=== PATIENT | male | born 1960 | race American Indian/Alaskan Native ===

== ENCOUNTER 2018-10-26 20:04 | Inpatient (IN) | payer SELFPAY ==
[2018-10-26] MEDS ORDERED: ZOFRAN IV ONE (20:06)
[2018-10-26] MEDS ORDERED: NITRO-BID 2% TP ONE (20:06)
[2018-10-26] MEDS ORDERED: DILAUDID IV ONE ×2 (20:06→20:14)
[2018-10-26] MEDS ORDERED: PLAVIX PO ONE (20:07)
--- NOTE | 2018-10-26 20:11 | Emergency Department Report ---
HPI - General Time Seen by Provider: 10/26/18 20:05 - [facility] HPI: Room 20 The patient is a 58-year-old male presents with a chief complaint of chest pain. Patient states proximal one hour prior to arrival developed severe substernal chest pain shortness of breath nausea/vomiting and diaphoresis. Prehospital EKG was transmitted by EMS prior to arrival and this EKG was transmitted to Dr. Peter at 19:46 as a code STEMI was called. EKG in ED sent at 20:02 Location: Chest Duration: [See above] Quality: [See above] Severity: [See above] Modifying factors: [see above] Context: [see above] Mode of transportation: [not driving] ED Past Medical Hx - Past Medical History Hx Hypertension: Yes Hx Psychiatric Treatment: Yes (anxiety) Additional medical history: History of alcoholism - Surgical History Past Surgical History?: No - Family History Family history: no significant - Social History Smoking Status: Current Every Day Smoker ED Review of Systems ROS: Stated complaint: STEMI Other details as noted in HPI Constitutional: diaphoresis Eyes: denies: eye pain ENT: denies: throat pain Respiratory: shortness of breath Cardiovascular: chest pain Endocrine: no symptoms reported Gastrointestinal: nausea, vomiting Genitourinary: denies: dysuria Musculoskeletal: denies: back pain Neurological: denies: headache Physical Exam - Physical Exam Physical Exam: GENERAL: The patient is well-developed well-nourished male lying on stretcher appearing to be in acute discomfort. Patient writhing on stretcher HEENT: Normocephalic. Atraumatic. Extraocular motions are intact. Patient has moist mucous membranes. NECK: Supple. Trachea midline CHEST/LUNGS: Clear to auscultation. There is no respiratory distress noted. HEART/CARDIOVASCULAR: Regular. There is no tachycardia. There is no gallop rub or murmur. ABDOMEN: Abdomen is soft, nontender. Patient has normal bowel sounds. There is no abdominal distention. SKIN: There is no rash. There is no edema. There is no diaphoresis. NEURO: The patient is awake, alert, and oriented. The patient is cooperative. The patient has normal speech MUSCULOSKELETAL: There is no evidence of acute injury. ED Course - Consultations Consultation #1: 10/26/18 19:[address] Peter 10/26/18 20:02 Repeat EKG and case discussed with Dr Mandadi ED Medical Decision Making - EKG Data -: EKG Interpreted by Me EKG shows normal: sinus rhythm Rate: normal - EKG Data When compared to previous EKG there are: previous EKG unavailable Interpretation: acute GA (STEMI) - Differential Diagnosis STEMI Critical care attestation.: If time is entered above; I have spent that time in minutes in the direct care of this critically ill patient, excluding procedure time. ED Disposition Clinical Impression: STEMI (ST elevation myocardial infarction), Acute chest pain Disposition: 09 OP ADMIT IP TO THIS HOSP Is pt being admited?: Yes Does the pt Need Aspirin: Yes Condition: Fair Instructions: Chest Pain (ED) Time of Disposition: 20:12 (awaiting warehouse laborer)
[2018-10-26 20:17] LABS: Basophils # (Auto) 0.1 K/mm3 (0.0-0.1); Basophils % (Auto) 0.5 % (0.0-1.8); Eosinophils # (Auto) 0.2 K/mm3 (0.0-0.4); Eosinophils % (Auto) 1.1 % (0.0-4.3); Hematocrit 48.3 % (35.5-45.6); Hemoglobin 15.7 gm/dl (11.8-15.2); Lymphocytes # (Auto) 3.5 K/mm3 (1.2-5.4); Lymphocytes % (Auto) 21.4 % (13.4-35.0); Mean Corpuscular HGB Conc 33 % (32-34); Mean Corpuscular Volume 83 fl (84-94); Monocytes # (Auto) 1.2 K/mm3 (0.0-0.8); Monocytes % (Auto) 7.3 % (0.0-7.3); Platelet Count 293 K/mm3 (140-440); Red Blood Count 5.84 M/mm3 (3.65-5.03); Red Cell Distribution Width 16.7 % (13.2-15.2)
[2018-10-26 20:26] LABS: INR 1.1 (0.87-1.13)
[2018-10-26 20:27] LABS: Partial Thromboplastin Time 22.5 Sec. (24.2-36.6)
--- NOTE | 2018-10-26 20:27 | History and Physical Report ---
History of Present Illness Chief complaint: My chest hurts History of present illness: 58 YO Male with HTN, Anxiety, Nicotine Dependence, ETOH Dependence presents to ED for evaluation. Pt states that he has experienced pain in his chest over the past 1 hour. Pt states that pain is 10/10, constant, crushing in nature, worsened with exertion, relieved with rest, associated with shortness of breath and diaphoresis. Pt acknowledges nausea. EMS notified, and upon arrival EKG findinngs consistent with STEMI. A code STEMI was called and the patient was transported to [facility]. Cardiology notified. Pt seen and evaluated in ED and taken urgently to clinical laboratory aides teacher for intervention. Pt admitted to ICU. Pt denies fever, chills, syncope, hemoptysis, BRBPR, productiive cough, skin rash, unilateral leg swelling, calf pain, individual/family history of DVT/PE, or recent ill contacts. No prior admission for review. All listed medication reconciled at time of admission. Past History Past Medical History: hypertension, other (Alcohol Dependence) Past Surgical History: No surgical history, Other (reviewed) Social history: single, smoking Family history: diabetes, hypertension Medications and Allergies Allergies Allergy/AdvReac Type Severity Reaction Status Date / Time No Known Allergies Allergy Verified 10/26/18 20:17 Active Meds: Active Medications Lidocaine (Xylocaine 2%) Confirm Administered Dose 20 ml INFILTRATI .STK-MED ONE Stop: 10/26/18 20:30 Review of Systems Constitutional: no weight loss, no weight gain, no fever, no chills Ears, nose, mouth and throat: no ear pain, no ear discharge, no tinnitis, no decreased hearing, no nose pain, no nasal discharge, no sinus pressure Cardiovascular: chest pain, shortness of breath Respiratory: no cough, no cough with sputum, no excessive sputum, no hemoptysis Gastrointestinal: no nausea, no constipation, no change in bowel habits Genitourinary Male: no dysuria, no flank pain, no discharge, no urinary frequenc y, no urinary hesitancy, no nocturia Rectal: no pain, no incontinence, no bleeding Musculoskeletal: no neck stiffness, no neck pain, no shooting arm pain, no arm numbness/tingling, no low back pain, no shooting leg pain Integumentary: no rash, no pruritis, no redness, no sores, no jaundice Neurological: no transient paralysis, no paralysis, no weakness, no parathesias, no numbness, no tingling, no seizures, no syncope Psychiatric: no anxiety, no memory loss, no change in sleep habits, no sleep disturbances, no insomnia, no hypersomnia, no change in appetite, no change in libido Endocrine: no cold intolerance, no heat intolerance, no excessive thirst, no polydipsia, no nocturia, no excessive sweating, no flushing Hematologic/Lymphatic: no easy bruising, no lymphadenopathy, no lymphedema Allergic/Immunologic: no urticaria, no anaphylaxis, no angioedema Exam - Constitutional Vitals: Temp Pulse Resp BP Pulse Ox 97.9 F 75 17 113/63 92 10/26/18 20:21 10/26/18 20:21 10/26/18 20:21 10/26/18 20:21 10/26/18 20:21 General appearance: Present: severe distress - EENT Eyes: Present: PERRL ENT: hearing intact, clear oral mucosa - Neck Neck: Present: supple, normal ROM - Respiratory Respiratory effort: normal Respiratory: bilateral: CTA - Cardiovascular Heart Sounds: Present: S1 & S2. Absent: rub, click - Extremities Extremities: pulses symmetrical, No edema Peripheral Pulses: within normal limits - Abdominal General gastrointestinal: Present: soft, non-tender, non-distended, normal bowel sounds Male genitourinary: Present: normal - Integumentary Integumentary: Present: clear, warm, dry - Musculoskeletal Musculoskeletal: gait normal, strength equal bilaterally - Psychiatric Psychiatric: appropriate mood/affect, intact judgment & insight - Neurologic Neurologic: CNII-XII intact, moves all extremities Results - Labs CBC & Chem 7: 10/27/18 05:00 10/27/18 05:00 Labs: Abnormal lab results 10/26/18 Range/Units 20:03 WBC 16.2 H (4.5-11.0) K/mm3 RBC 5.84 H (3.65-5.03) M/mm3 Hgb 15.7 H (11.8-15.2) gm/dl Hct 48.3 H (35.5-45.6) % MCV 83 L (84-94) fl MCH 27 L (28-32) pg RDW 16.7 H (13.2-15.2) % [place] # 1.2 H (0.0-0.8) K/mm3 Seg Neutrophils # 11.3 H (1.8-7.7) K/mm3 Assessment and Plan - Patient Problems (1) STEMI (ST elevation myocardial infarction) Current Visit: Yes Status: Acute Qualifiers: Involved coronary artery: LAD coronary artery Qualified Code(s): I21.02 - ST elevation (STEMI) myocardial infarction involving left anterior descending coronary artery Plan to address problem: Admit to ICU: Cardiology consulted in ED, Pt taken urgently to laboratory development technician for intervention, supportive care. (2) Diastolic CHF Current Visit: Yes Status: Acute Qualifiers: Heart failure chronicity: acute Qualified Code(s): I50.31 - Acute diastolic (congestive) heart failure Plan to address problem: Admit to ICU, strict I/O, daily weight, monitor uop q shift, afterload reduction, supportive care chest x ray, supplemental oxygen, pulse oximetry. (3) EtOH dependence Current Visit: Yes Status: Chronic Qualifiers: Substance use status: with intoxication Complication of substance-induced condition: uncomplicated Qualified Code(s): F10.220 - Alcohol dependence with intoxication, uncomplicated Plan to address problem: CIWA protocol, banana bag, supportive care, thiamine, folic acid, multivitamin (4) SIRS (systemic inflammatory response syndrome) Current Visit: Yes Status: Acute Plan to address problem: CBC, CMP, Empiric antibiotic therapy, urinalysis, chest x ray (5) DVT prophylaxis Current Visit: Yes Status: Acute Plan to address problem: SCD to BLE while in bed,
[2018-10-26] MEDS ORDERED: MORPHINE IV PRN (20:28)
[2018-10-26] MEDS ORDERED: SODIUM CHLORIDE FLUSH SYRINGE 10 ML IV PRN (20:28)
[2018-10-26] MEDS ORDERED: HEPARIN/NS 5000 UNIT/500ML(CATH LAB) 1,000 ML IR ONE (20:28)
[2018-10-26] MEDS ORDERED: XYLOCAINE 2% INFILTRATI ONE (20:29)
[2018-10-26] MEDS ORDERED: VERSED ONE (20:29)
[2018-10-26] MEDS ORDERED: SUBLIMAZE ONE (20:29)
[2018-10-26] MEDS ORDERED: CALAN ONE (20:29)
[2018-10-26] MEDS ORDERED: NACL 0.9% 500 ML 500 ML ONE (20:30)
[2018-10-26] MEDS ORDERED: VITAMIN B-1 100 MG, FOLVITE 1 MG, INFUVITE 10 ML in NACL 0.9% 1000 ML 1,000 ML IV ONE (20:32)
[2018-10-26] MEDS ORDERED: ATIVAN IV PRN (20:32)
[2018-10-26 20:40] LABS: Creatine Kinase MB 2.8 ng/mL (0.0-4.0)
[2018-10-26] MEDS ORDERED: NEO SYNEPHRINE/NS Syringe(OR USE) IV ONE (20:40)
[2018-10-26] MEDS ORDERED: ADRENALIN ONE (20:40)
[2018-10-26] MEDS ORDERED: ATROPINE 0.1% (CARDIAC) ONE (20:40)
[2018-10-26] MEDS ORDERED: XYLOCAINE CARDIAC IV ONE (20:40)
[2018-10-26 20:41] LABS: BUN/Creatinine Ratio 16; Blood Urea Nitrogen 21 mg/dL (9-20); Calcium 9.1 mg/dL (8.4-10.2); Hemolysis Index 57
[2018-10-26] MEDS: HEPARIN 10,000 UNITS/10 ML ONE ×2 (20:41→20:49)
[2018-10-26] MEDS ORDERED: HEPARIN 10,000 UNITS/10 ML ONE (20:58)
[2018-10-26] MEDS ORDERED: ZOFRAN ONE (20:58)
[2018-10-26] MEDS: AGGRASTAT DRIP (12.5 MG/250 ML) 12,500 MCG/250 ML BAG IV ONE ×2 (21:00→21:08)
[2018-10-26] MEDS ORDERED: ALUM-MAG HYDROX-SIMETH 200-200-20MG/5ML ONE (21:05)
[2018-10-26] MEDS ORDERED: PLAVIX ONE (21:05)
[2018-10-26] MEDS ORDERED: BABY ASPIRIN ONE (21:05)
[2018-10-26] MEDS ORDERED: HEPARIN/NS 5000 UNIT/500ML(CATH LAB) 500 ML IR ONE (21:09)
[2018-10-26] MEDS ORDERED: NITROGLYCERIN SYRINGE 3 ML ONE (21:19)
[2018-10-26] MEDS ORDERED: ULTRAM PO PRN (21:35)
--- NOTE | 2018-10-26 21:43 | Consultation ---
History of Present Illness Consult date: 10/26/18 Requesting physician: GERALDINE PERSAUD Consult reason: chest pain History of present illness: 58-year-old male history of anxiety and depression chronic pain heavy smoker EtOH abuse was recently at the [employer] was primary care was advised at that time stopped smoking today he was having midsternal chest pain sharp in nature also with palpations with nausea and vomiting diaphoresis nonradiating acute midsternal chest pressure. EMS was called by the mother and he showed an acute anterior lateral wall myocardial infarction patient was brought emergently to the label fuser tender which revealed left main patent LAD proximal pain in the mid 100% diagonal one patent ramus patent circumflex patent OM1 patent RCA patent with mild LV dysfunction EF approximately 45% anterior wall hypokinesis patient had PCI of the mid LAD with a drug-eluting science 2 5 x 23 mm postdilated with 3.0 by 12 times to inflation residual distal diagonal to small vessel clot. Patient's chest pain has improved we'll continue with Aggr astat and dual antiplatelet. Discussed with patient and patient's mother. Patient has not been on medications for anxiety and depression for 3 months Past History Past Medical History: hypertension, other (Alcohol Dependence) Past Surgical History: Other (bilateral shoulder replacement and thigh injury) Social history: single, smoking, alcohol abuse Family history: diabetes, hypertension Medications and Allergies Allergies Allergy/AdvReac Type Severity Reaction Status Date / Time No Known Allergies Allergy Verified 10/26/18 20:17 Active Meds: Active Medications Ceftriaxone Sodium (Rocephin/Ns 1 Gm/50 Ml) 1 gm in 50 mls @ 100 mls/hr IV Q24HR MADELEINE; Protocol Thiamine HCl 100 mg/ Folic Acid 1 mg/ Multivitamins/Minerals 10 ml/ Sodium Chloride 1,011.2 mls @ 250 mls/hr IV ONCE ONE Stop: 10/27/18 00:34 Lorazepam (Ativan) 2 mg IV Q1HR PRN PRN Reason: CIWA-Ar 8-15 Morphine Sulfate (Morphine) 2 mg IV Q4H PRN PRN Reason: Pain, Moderate (4-6) Oxycodone/Acetaminophen (Percocet 5/325) 1 tab PO Q6H PRN PRN Reason: Pain, Moderate (4-6) Sodium Chloride (Sodium Chloride Flush Syringe 10 Ml) 10 ml IV BID MADELEINE Sodium Chloride (Sodium Chloride Flush Syringe 10 Ml) 10 ml IV PRN PRN PRN Reason: LINE FLUSH Review of Systems All systems: negative (as per the HPI) Physical Examination Vital Signs Temp Pulse Resp BP Pulse Ox 97.9 F 75 17 113/63 92 10/26/18 20:14 10/26/18 20:14 10/26/18 20:14 10/26/18 20:14 10/26/18 20:14 General appearance: well-nourished HEENT: Positive: PERRL, Mucus Membranes Moist Neck: Positive: neck supple, trachea midline Cardiac: Positive: Reg Rate and Rhythm, S1/S2, Audible Murmur Lungs: Positive: clear to auscultation, Normal Breath Sounds Neuro: Positive: Grossly Intact Abdomen: Positive: Soft, Active Bowel Sounds. Negative: Tender, Distended Male genitourinary: Positive: normal Skin: Positive: Clear Incision: Cardiac Cath Site (TR band no hematoma) Musculoskeletal: No Pain, Normal Range of Motion Extremities: Present: normal. Absent: edema Results 10/26/18 20:03 10/26/18 20:03 Cardiac Enzymes 10/26/18 Range/Units 20:03 CK-MB (CK-2) 2.8 (0.0-4.0) ng/mL Coagulation 10/26/18 Range/Units 20:03 PT 13.9 (12.2-14.9) Sec. INR 1.10 (0.87-1.13) APTT 22.5 L (24.2-36.6) Sec. CBC 10/26/18 Range/Units 20:03 WBC 16.2 H (4.5-11.0) K/mm3 RBC 5.84 H (3.65-5.03) M/mm3 Hgb 15.7 H (11.8-15.2) gm/dl Hct 48.3 H (35.5-45.6) % Plt Count 293 (140-440) K/mm3 Lymph # 3.5 (1.2-5.4) K/mm3 [place] # 1.2 H (0.0-0.8) K/mm3 Eos # 0.2 (0.0-0.4) K/mm3 Baso # 0.1 (0.0-0.1) K/mm3 Comprehensive Metabolic Panel 06/16/19 Range/Units 20:03 Sodium 140 (137-145) mmol/L Potassium 4.2 (3.6-5.0) mmol/L Chloride 102.0 (98-107) mmol/L Carbon Dioxide 24 (22-30) mmol/L BUN 21 H (9-20) mg/dL Creatinine 1.3 (0.8-1.5) mg/dL Glucose 126 H (75-100) mg/dL Calcium 9.1 (8.4-10.2) mg/dL - Imaging and Cardiology Cardiac cath: report reviewed (left main patent LAD proximal pain in the mid 100% diagonal one patent ramus patent circumflex patent OM1 patent RCA patent with mild LV dysfunction EF approximately 45% anterior wall hypokinesis patient had PCI of the mid LAD with a drug-eluting science 2 5 x 23 mm postdilated with 3.0 by 12 times to inflation residual distal diagonal to small vessel clot.) EKG interpretations - Telemetry EKG Rhythm: Sinus Rhythm (sinus rhythm acute anterior wall [place]) Assessment and Plan Will continue IV fluids and Aggrastat per 12 hours continue dual antiplatelet statin carvedilol and lisinopril. EtOH withdrawal precautions. Post PCI care. Echocardiogram. - Patient Problems (1) Hyperlipemia, mixed Current Visit: Yes Status: Chronic (2) Smoking addiction Current Visit: Yes Status: Chronic (3) Diastolic CHF Current Visit: Yes Status: Acute Qualifiers: Heart failure chronicity: acute Qualified Code(s): I50.31 - Acute diastolic (congestive) heart failure (4) EtOH dependence Current Visit: Yes Status: Chronic Qualifiers: Substance use status: with intoxication Complication of substance-induced condition: uncomplicated Qualified Code(s): F10.220 - Alcohol dependence with intoxication, uncomplicated (5) STEMI (ST elevation myocardial infarction) Current Visit: Yes Status: Acute Qualifiers: Involved coronary artery: LAD coronary artery Qualified Code(s): I21.02 - ST elevation (STEMI) myocardial infarction involving left anterior descending coronary artery
[2018-10-26] MEDS ORDERED: AGGRASTAT DRIP (12.5 MG/250 ML) 12,500 MCG/250 ML BAG IV SCH (22:00)
[2018-10-26] MEDS ORDERED: NACL 0.9% 1000 ML 1,000 ML IV SCH (22:00)
--- NOTE | 2018-10-26 23:04 | Cardiac Catherization Report ---
LEFT HEART CATHETERIZATION/PERCUTANEOUS CORONARY INTERVENTIONAL/INTRAVASCULAR ULTRASOUND REPORT CLINICAL INFORMATION: This is a 58-year-old -[place] gentleman, anxiety, depression, smoker, ETOH abuse, presents with chest pain for the last 2 hours. EMS showed acute anterolateral OK and ST elevation OK protocol was initiated. The patient under moderate sedation, 1 mg Versed, 50 mcg of fentanyl as the patient was quite agitated. Sedation started at 2030 and finished at 2135, total 60 minutes, moderate supervised sedation. Procedure was done via the right radial artery, sterile technique, local anesthesia, 6-[place] radial sheath inserted. Left system engaged with JL3.5 catheter. Left main is large and patent. LAD is a large caliber vessel, proximal patent. Diagonal 1 is a medium caliber vessel, it is patent. The mid LAD 100%. Ramus is a small to medium caliber vessel that is patent. Circumflex and AV groove is a large caliber vessel that is patent. OM1 is a medium caliber vessel that is patent. RCA engaged with JR4 catheter, is a medium caliber vessel that is patent, bifurcates into small PDA, PLV that are patent. LV gram done in GAMBIAN and ALEX shows mild LV dysfunction, EF 40-45% with anterior wall hypokinesis. LVEDP 18 mmHg, LV is 116, aortic is 116/73, no gradient across the aortic valve on pullback. PERCUTANEOUS/INTRAVASCULAR ULTRASOUND OF THE LAD: 1. Engaged left system with an EBU 3.5 guiding catheter. 2. Crossed the distal LAD with short [place] wire. 3. Predilated with 2.5 x 10 x 2 inflations showed some mild improvement, so balloon further with a 2.5 x 20 and restored HAI 3 flow at 12 atmospheres. 4. Intravascular ultrasound showed diffuse disease, distal reference vessel 2.5 x 2.7, proximal is 3.0 x 3.2. So stented across the small diagonal 2 with a drug-eluting Xience 2.5 x 23 at 14 atmospheres and postdilated the distal and proximal portion of the stent with a 3.0 x 12 at 15 atmospheres. 5. Excellent angiographic result. The diagonal 2 is a small caliber vessel proximally than distally, bifurcates upper and lower branch. Lower branch is patent, but upper branch, there is clot, but is no staining, unable to get into it because of the tortuosity of the diagonal2 and is also small vessel. 6. Remove coronary wire, multiple angiograms with excellent angiographic result, HAI 3 flow, good stent apposition and expansion noted. No dissection or perforation or embolization noted. There is mild residual clot in the distal upper branch of diagonal2. 7. A 6-[place] guiding catheter taken over guidewire, 6-[place] radial sheath was discontinued. Radial band applied. No hematoma, no bleeding. SUMMARY: Successful PCI of the mid LAD with a drug-eluting Xience 2.5 x 23 postdilated with 3.0 x 12 ____ as directed. There is some residual clot in the distal upper branch of the diagonal to give Aggrastat. The patient was loaded with 300 pre and gave another 300 IV fluids. The patient will have post-radial care dual antiplatelet, aspirin and Plavix. 1. Left main patent. Diagonal 1 is patent, ramus patent, circumflex patent, OM1 patent, RCA patent with mild LV dysfunction, anterior wall hypokinesis. 2. Discussed this with the patient and patient's mother, smoking cessation, ETOH cessation. Statin and RONALD inhibitor and low-dose beta juma. JOB# [id number] CATHERINE/CIRO
--- NOTE | 2018-10-26 23:21 | XRay Report ---
PROCEDURE: XR CHEST 1V AP TECHNIQUE: Chest radiograph single view. HISTORY: pain COMPARISONS: None . FINDINGS: Heart: Normal. Mediastinum/Vessels: Normal. Lungs/Pleural space: Normal. Bony thorax: No acute osseous abnormality. Life support devices: None. IMPRESSION: No acute cardiopulmonary abnormality. This document is electronically signed by Justus uZrita MD., October 26 2018 11:19:08 PM ET
[2018-10-27] MEDS: ROCEPHIN/NS 1 GM/50 ML 1 GM/50 ML BAG IV SCH ×2 (00:32→09:58)
[2018-10-27] MEDS: SODIUM CHLORIDE FLUSH SYRINGE 10 ML IV SCH ×3 (00:34→23:05)
[2018-10-27] MEDS: COREG PO SCH ×3 (00:35→23:05)
[2018-10-27] MEDS ORDERED: ZOFRAN IV PRN (04:01)
[2018-10-27 05:28] LABS: Basophils % (Auto) 0.4 % (0.0-1.8); Eosinophils % (Auto) 0.3 % (0.0-4.3); Hematocrit 43.3 % (35.5-45.6); Hemoglobin 14.2 gm/dl (11.8-15.2); Lymphocytes # (Auto) 1.5 K/mm3 (1.2-5.4); Lymphocytes % (Auto) 15.4 % (13.4-35.0); Mean Corpuscular HGB Conc 33 % (32-34); Mean Corpuscular Volume 83 fl (84-94); Monocytes # (Auto) 0.7 K/mm3 (0.0-0.8); Monocytes % (Auto) 7.5 % (0.0-7.3); Platelet Count 214 K/mm3 (140-440); Red Blood Count 5.25 M/mm3 (3.65-5.03); Red Cell Distribution Width 16.7 % (13.2-15.2)
[2018-10-27 05:55] LABS: Alanine Aminotransferase 64 units/L (7-56); Albumin 3.2 g/dL (3.9-5); BUN/Creatinine Ratio 18; Blood Urea Nitrogen 16 mg/dL (9-20); Calcium 7.9 mg/dL (8.4-10.2); Hemolysis Index 60
[2018-10-27 08:21] LABS: Chol/HDL Ratio 3.39 %; HDL Cholesterol 48 mg/dL (40-59); LDL Cholesterol,Direct 101 mg/dL (50-130)
[2018-10-27] MEDS: PERCOCET 5/325 PO PRN ×2 (08:22→19:55)
--- NOTE | 2018-10-27 08:30 | XRay Report ---
AP CHEST: HISTORY: Post PCI AP view of the chest demonstrates a normal mediastinal and cardiac contour with clear lungs and normal bony and soft tissue structures. No change since 10/26/18. IMPRESSION: Unremarkable AP chest.
[2018-10-27 09:05] LABS: Creatine Kinase MB 333.6 ng/mL (0.0-4.0)
[2018-10-27] MEDS: BABY ASPIRIN PO SCH (09:55)
[2018-10-27] MEDS: PLAVIX PO SCH (09:55)
[2018-10-27] MEDS: VITAMIN B-1 PO SCH (09:55)
[2018-10-27] MEDS: THERAGRAN Tab PO SCH (09:55)
[2018-10-27] MEDS: FOLVITE PO SCH (09:56)
[2018-10-27] MEDS: ZESTRIL PO SCH (10:00)
[2018-10-27 10:24] LABS: Bilirubin,Urine NEG (Negative); Blood,Urine NEG (Negative); Color,Urine Yellow (Yellow); Mucus,Urine FEW /HPF; Protein,Urine <15 mg/dL mg/dL (Negative); Urobilinogen,Urine < 2.0 mg/dL (<2.0)
--- NOTE | 2018-10-27 11:48 | Progress Note ---
Assessment and Plan Assessment and plan: STEMI/ACS. Continue Aggrastat per cardiology. Continue dual antiplatelet, statin, carvedilol and lisinopril. Acute diastolic heart failure. Follow-up echocardiogram. EtOH abuse. Continue CIWA protocol. Hyperlipidemia. Continue statin. Tobacco abuse. Patient has been counseled on smoking cessation. Disposition. Consider transfer to floor if okay with cardiology. History Interval history: 58-year-old male history of anxiety and depression chronic pain heavy smoker EtOH abuse was recently at the [facility] was primary care was advised at that time stopped smoking today he was having midsternal chest pain sharp in nature also with palpations with nausea and vomiting diaphoresis nonradiating acute midsternal chest pressure. EMS was called by the mother and he showed an acute anterior lateral wall myocardial infarction patient was brought emergently to the analyst microbiology lab which revealed left main patent LAD proximal pain in the mid 100% diagonal one patent ramus patent circumflex patent OM1 patent RCA patent with mild LV dysfunction EF approximately 45% anterior wall hypokinesis patient had PCI of the mid LAD with a drug-eluting science 2 5 x 23 mm postdilated with 3.0 by 12 times to inflation residual distal diagonal to small vessel clot. Patient's chest pain has improved we'll continue with Aggrastat and dual antiplatelet. Patient has not been on medications for anxiety and depression for 3 months No new issues overnight. Hospitalist Physical - Constitutional Vitals: Temp Pulse Resp BP Pulse Ox 97.3 F L 64 11 L 112/73 97 10/27/18 08:00 10/27/18 11:00 10/27/18 11:00 10/27/18 11:00 10/27/18 11:00 General appearance: Present: no acute distress - EENT Eyes: Present: PERRL, EOM intact ENT: hearing intact, clear oral mucosa, dentition normal - Neck Neck: Present: supple, normal ROM - Respiratory Respiratory effort: normal Respiratory: bilateral: CTA - Cardiovascular Rhythm: regular Heart Sounds: Present: S1 & S2. Absent: gallop, rub - Extremities Extremities: no ischemia, No edema, Full ROM - Abdominal General gastrointestinal: soft, non-tender, non-distended, normal bowel sounds - Integumentary Integumentary: Present: clear, warm, dry - Neurologic Neurologic: CNII-XII intact, moves all extremities Results - Labs CBC & Chem 7: 10/27/18 05:00 10/27/18 05:00 Labs: Laboratory Last Values WBC 9.6 K/mm3 (4.5-11.0) 10/27/18 05:00 RBC 5.25 M/mm3 (3.65-5.03) H 10/27/18 05:00 Hgb 14.2 gm/dl (11.8-15.2) 10/27/18 05:00 Hct 43.3 % (35.5-45.6) 10/27/18 05:00 MCV 83 fl (84-94) L 10/27/18 05:00 MCH 27 pg (28-32) L 10/27/18 05:00 MCHC 33 % (32-34) 10/27/18 05:00 RDW 16.7 % (13.2-15.2) H 10/27/18 05:00 Plt Count 214 K/mm3 (140-440) 10/27/18 05:00 Lymph % (Auto) 15.4 % (13.4-35.0) 10/27/18 05:00 [place] % (Auto) 7.5 % (0.0-7.3) H 10/27/18 05:00 Eos % (Auto) 0.3 % (0.0-4.3) 10/27/18 05:00 Baso % (Auto) 0.4 % (0.0-1.8) 10/27/18 05:00 Lymph # 1.5 K/mm3 (1.2-5.4) 10/27/18 05:00 [place] # 0.7 K/mm3 (0.0-0.8) 10/27/18 05:00 Eos # 0.0 K/mm3 (0.0-0.4) 10/27/18 05:00 Baso # 0.0 K/mm3 (0.0-0.1) 10/27/18 05:00 Seg Neutrophils % 76.4 % (40.0-70.0) H 10/27/18 05:00 Seg Neutrophils # 7.3 K/mm3 (1.8-7.7) 10/27/18 05:00 PT 13.9 Sec. (12.2-14.9) 10/26/18 20:03 INR 1.10 (0.87-1.13) 10/26/18 20:03 APTT 22.5 Sec. (24.2-36.6) L 10/26/18 20:03 Sodium 139 mmol/L (137-145) 10/27/18 05:00 Potassium 4.5 mmol/L (3.6-5.0) 10/27/18 05:00 Chloride 107.0 mmol/L (98-107) 10/27/18 05:00 Carbon Dioxide 20 mmol/L (22-30) L 10/27/18 05:00 17 mmol/L 10/27/18 05:00 BUN 16 mg/dL (9-20) 10/27/18 05:00 0.9 mg/dL (0.8-1.5) 10/27/18 05:00 Estimated GFR > 60 ml/min 10/27/18 05:00 18 % 10/27/18 05:00 Glucose 98 mg/dL (75-100) 10/27/18 05:00 Calcium 7.9 mg/dL (8.4-10.2) L 10/27/18 05:00 0.30 mg/dL (0.1-1.2) 10/27/18 05:00 AST 213 units/L (5-40) H 10/27/18 05:00 ALT 64 units/L (7-56) H 10/27/18 05:00 52 units/L (35-129) 10/27/18 05:00 2679 units/L (55-170) H 10/27/18 05:00 CK-MB (CK-2) 333.6 ng/mL (0.0-4.0) H 10/27/18 05:00 CK-MB (CK-2) Rel Index 12.4 (0-4) H 10/27/18 05:00 5.780 ng/mL (0.00-0.029) H* D 10/27/18 05:00 NT-Pro-B Natriuret Pep < 5 pg/mL (0-900) 10/26/18 20:03 6.6 g/dL (6.3-8.2) 10/27/18 05:00 3.2 g/dL (3.9-5) L 10/27/18 05:00 0.9 % 10/27/18 05:00 Triglycerides 92 mg/dL (2-149) 10/27/18 05:00 Cholesterol 163 mg/dL (50-199) 10/27/18 05:00 101 mg/dL (50-130) 10/27/18 05:00 48 mg/dL (40-59) 10/27/18 05:00 3.39 % 10/27/18 05:00 Yellow (Yellow) 10/27/18 10:05 Slightly-cloudy (Clear) 10/27/18 10:05 6.0 (5.0-7.0) 10/27/18 10:05 Ur Specific [place] 1.039 (1.003-1.030) H 10/27/18 10:05 <15 mg/dl mg/dL (Negative) 10/27/18 10:05 Neg mg/dL (Negative) 10/27/18 10:05 Neg mg/dL (Negative) 10/27/18 10:05 Neg (Negative) 10/27/18 10:05 Neg (Negative) 10/27/18 10:05 Neg (Negative) 10/27/18 10:05 < 2.0 mg/dL (<2.0) 10/27/18 10:05 Ur Leukocyte Esterase Lg (Negative) 10/27/18 10:05 36.0 /HPF (0.0-6.0) H 10/27/18 10:05 3.0 /HPF (0.0-6.0) 10/27/18 10:05 U Epithel Cells (Auto) 1.0 /HPF (0-13.0) 10/27/18 10:05 Few /HPF 10/27/18 10:05 Plasma/Serum Alcohol < 0.01 % (0-0.07) 10/26/18 20:28 Blood Type AB POSITIVE 10/26/18 20:03 Antibody Screen Negative 10/26/18 20:03 Active Medications - Current Medications Current Medications: Generic Name Dose Route Start Last Admin Trade Name Freq PRN Reason Stop Dose Admin Aspirin 81 mg 10/27/18 10:00 10/27/18 09:55 Baby Aspirin PO 81 mg QDAY MADELEINE Administration Atorvastatin Calcium 80 mg 10/26/18 22:00 10/27/18 00:36 Lipitor PO 80 mg QHS MADELEINE Administration Carvedilol 3.125 mg 10/26/18 22:00 10/27/18 09:59 Coreg PO 3.125 mg BID MADELEINE Administration Clopidogrel Bisulfate 75 mg 10/27/18 10:00 10/27/18 09:55 Plavix PO 75 mg QDAY MADELEINE Administration Folic Acid 1 mg 10/27/18 10:00 10/27/18 09:56 Folvite PO 1 mg QDAY MADELEINE Administration Ceftriaxone Sodium 1 gm in 50 mls @ 100 mls/hr 10/26/18 20:30 10/27/18 09:58 Rocephin/Ns 1 Gm/50 Ml IV 100 mls/hr Q24HR MADELEINE Administration Protocol Lisinopril 2.5 mg 10/27/18 10:00 10/27/18 10:00 Zestril PO Not Given QDAY MADELEINE Lorazepam 2 mg 10/26/18 20:32 Ativan IV Q1HR PRN CIWA-Ar 8-15 Morphine Sulfate 2 mg 10/26/18 20:28 10/27/18 00:18 Morphine IV 2 mg Q4H PRN Administration Pain, Moderate (4-6) Multivitamins 1 each 10/27/18 10:00 10/27/18 09:55 Theragran Tab PO 1 each QDAY MADELEINE Administration Ondansetron HCl 4 mg 10/27/18 04:01 10/27/18 04:23 Zofran IV 4 mg Q4H PRN Administration Nausea And Vomiting Oxycodone/Acetaminophen 1 tab 10/26/18 20:28 10/27/18 08:22 Percocet 5/325 PO 1 tab Q6H PRN Administration Pain, Moderate (4-6) Sodium Chloride 10 ml 10/26/18 22:00 10/27/18 00:34 Sodium Chloride Flush Syringe 10 Ml IV 10 ml BID MADELEINE Administration Sodium Chloride 10 ml 10/26/18 20:28 Sodium Chloride Flush Syringe 10 Ml IV PRN PRN LINE FLUSH Thiamine HCl 100 mg 10/27/18 10:00 10/27/18 09:55 Vitamin B-1 PO 100 mg QDAY MADELEINE Administration Tramadol HCl 50 mg 10/26/18 21:35 Ultram PO Q4H PRN Pain, Mild (1-3)
--- NOTE | 2018-10-27 15:29 | Progress Note ---
Assessment and Plan Currently stable cardiac status. Cont present cardiac regimen. Await echo. Pt may tx out of CCU to telemetry from cardiology standpoint. Likely d/c home in AM. The patient has been seen in conjunction with Dr. Irene Paula who agrees with the assessment and plan of care. - Patient Problems (1) STEMI (ST elevation myocardial infarction) Current Visit: Yes Status: Acute Qualifiers: Involved coronary artery: LAD coronary artery Qualified Code(s): I21.02 - ST elevation (STEMI) myocardial infarction involving left anterior descending coronary artery (2) CAD (coronary artery disease) Current Visit: Yes Status: Chronic (3) Stented coronary artery Current Visit: Yes Status: Chronic (4) Tobacco use Current Visit: Yes Status: Chronic (5) EtOH dependence Current Visit: Yes Status: Chronic Qualifiers: Substance use status: with intoxication Complication of substance-induced condition: uncomplicated Qualified Code(s): F10.220 - Alcohol dependence with intoxication, uncomplicated (6) Hyperlipemia, mixed Current Visit: Yes Status: Chronic Subjective Date of service: 10/27/18 Principal diagnosis: STEMI Interval history: pt resting in bed, no current complaints. states he had a bout of chest pain early this AM which was resolved by morphine. Objective Last Vital Signs Temp 98.3 F 10/27/18 12:00 Pulse 65 10/27/18 14:00 Resp 9 L 10/27/18 14:00 BP 112/64 10/27/18 14:00 Pulse Ox 99 10/27/18 14:00 - Physical Examination General: No Apparent Distress HEENT: Positive: PERRL, Mucus Membranes Moist Neck: Positive: neck supple, trachea midline Cardiac: Positive: Reg Rate and Rhythm, S1/S2 Lungs: Positive: Decreased Breath Sounds Neuro: Positive: Grossly Intact Abdomen: Positive: Soft, Active Bowel Sounds. Negative: Tender, Distended Skin: Positive: Clear Incision: Cardiac Cath Site (TR band no hematoma) Musculoskeletal: No Pain, Normal Range of Motion Extremities: Present: normal. Absent: edema - Labs and Meds Cardiac Enzymes 10/26/18 10/27/18 Range/Units 20:03 05:00 AST 213 H (5-40) units/L CK-MB (CK-2) 2.8 333.6 H (0.0-4.0) ng/mL Coagulation 10/26/18 Range/Units 20:03 PT 13.9 (12.2-14.9) Sec. INR 1.10 (0.87-1.13) APTT 22.5 L (24.2-36.6) Sec. Lipids 10/27/18 Range/Units 05:00 Triglycerides 92 (2-149) mg/dL Cholesterol 163 (50-199) mg/dL HDL Cholesterol 48 (40-59) mg/dL Cholesterol/HDL Ratio 3.39 % CBC 10/26/18 10/27/18 Range/Units 20:03 05:00 WBC 16.2 H 9.6 (4.5-11.0) K/mm3 RBC 5.84 H 5.25 H (3.65-5.03) M/mm3 Hgb 15.7 H 14.2 (11.8-15.2) gm/dl Hct 48.3 H 43.3 (35.5-45.6) % Plt Count 293 214 (140-440) K/mm3 Lymph # 3.5 1.5 (1.2-5.4) K/mm3 [place] # 1.2 H 0.7 (0.0-0.8) K/mm3 Eos # 0.2 0.0 (0.0-0.4) K/mm3 Baso # 0.1 0.0 (0.0-0.1) K/mm3 Comprehensive Metabolic Panel 10/26/18 10/27/18 Range/Units 20:03 05:00 Sodium 140 139 (137-145) mmol/L Potassium 4.2 4.5 (3.6-5.0) mmol/L Chloride 102.0 107.0 (98-107) mmol/L Carbon Dioxide 24 20 L (22-30) mmol/L BUN 21 H 16 (9-20) mg/dL Creatinine 1.3 0.9 (0.8-1.5) mg/dL Glucose 126 H 98 (75-100) mg/dL Calcium 9.1 7.9 L (8.4-10.2) mg/dL AST 213 H (5-40) units/L ALT 64 H (7-56) units/L Alkaline Phosphatase 52 (35-129) units/L Total Protein 6.6 (6.3-8.2) g/dL Albumin 3.2 L (3.9-5) g/dL - Imaging and Cardiology EKG: report reviewed, image reviewed Echo: pending Cardiac cath: report reviewed (left main patent LAD proximal pain in the mid 100% diagonal one patent ramus patent circumflex patent OM1 patent RCA patent with mild LV dysfunction EF approximately 45% anterior wall hypokinesis patient had PCI of the mid LAD with a drug-eluting science 2 5 x 23 mm postdilated with 3.0 by 12 times to inflation residual distal diagonal to small vessel clot.) - Telemetry EKG Rhythm: Sinus Rhythm
[2018-10-27] MEDS ORDERED: ROBITUSSIN PO PRN (22:48)
[2018-10-28 05:10] LABS: Hematocrit 44.3 % (35.5-45.6); Hemoglobin 14.4 gm/dl (11.8-15.2)
[2018-10-28 08:47] VITALS: BP 102/57
[2018-10-28] MEDS: PERCOCET 5/325 PO PRN ×2 (09:10→15:30)
[2018-10-28] MEDS: PLAVIX PO SCH (09:47)
[2018-10-28] MEDS: THERAGRAN Tab PO SCH (09:47)
[2018-10-28] MEDS: FOLVITE PO SCH (09:47)
[2018-10-28] MEDS: BABY ASPIRIN PO SCH (09:47)
[2018-10-28] MEDS: ZESTRIL PO SCH (09:47)
[2018-10-28] MEDS: VITAMIN B-1 PO SCH (09:47)
[2018-10-28] MEDS: COREG PO SCH (09:47)
[2018-10-28] MEDS: SODIUM CHLORIDE FLUSH SYRINGE 10 ML IV SCH (09:47)
--- NOTE | 2018-10-28 13:00 | Discharge Summary ---
Providers - Providers Date of Admission: 10/26/18 20:28 Date of discharge: 10/28/18 Attending physician: LOCO BARRAZA 10/26/18 Consult to Cardiac Rehabilitation [CONS] Routine Reason For Exam: post pci [facility] Reason for admission: chest pain/ST elevation SD Condition: Fair Pertinent studies: Chest x-ray; no acute abnormality Echocardiogram; the ejection fraction 40-45%, abnormal left ventricular diastolic filling consistent with abnormal relaxation Procedures: Cardiac cath: Successful PCI of the mid LAD with ZHENG , residual clot in the distal upper branch of the diagonal advised aggrastat, left main diagonal 1 ramus circumflex or SD. Patent,RCA patent, mild LV dysfunction anterior wall hypokinesis Hospital course: 58 YO Male patient with HTN, Anxiety, Nicotine Dependence, ETOH Dependence was admitted to emergency room for further evaluation of chest pain shortness of breath and diaphoresis. Upon arrival in the emergency room findings were consistent with STEMI, "STEMI was called, evaluated by cardiology Was taken to stat coronary angiogram, and was admitted to ICU Cardiac cath: Successful PTCA of the mid LAD with, residual clot in the distal upper branch of the diagonal advised aggrastat, left main diagonal 1 ramus circumflex or SD. Patent,RCA patent, mild LV dysfunction anterior wall hypokinesis Patient's medications were optimized Today patient is comfortable in no new complaints vital signs stable physical examination unremarkable Cleared by cardiology for discharge, hemodynamically and clinically stable at discharge Smoking cessation counseling done, advised nicotine patch as needed Patient is stable at discharge today Discharge diagnosis: --STEMI/ACS: s/p cardiac cath s/p PCI of mid LAD with ZHENG. Continue Aggrastat per cardiology. Continue dual antiplatelet, statin, carvedilol and lisinopril. --Acute combined mild systolic and diastolic heart failure.EF 40-45% Left ventricular filling and relaxation --EtOH abuse. on CIWA protocol. Tries to quit alcohol intake --Hyperlipidemia. Continue statin. --Tobacco abuse. Smoking cessation counseling, nicotine patch as needed Disposition: TO HOME OR SELFCARE Time spent for discharge: 33 min Core Measure Documentation - Palliative Care Palliative Care/ Comfort Measures: Not Applicable - Core Measures Any of the following diagnoses?: acute SD, heart failure, none - Acute SD Discharge Requirements Aspirin at discharge: Yes RONALD/ARB for LVSD if EF <40%: Yes Beta juma at discharge: Yes Statin for LDL = or >100 mg/dl on DC: Yes - Heart Failure Discharge Requirements RONALD/ARB for LVSD if EF <40%: Yes Beta juma at discharge: Yes Exam - Constitutional Vitals: Temp Pulse Resp BP Pulse Ox 98.8 F 71 16 102/57 96 10/28/18 08:44 10/28/18 10:00 10/28/18 08:44 10/28/18 08:44 10/28/18 08:44 General appearance: Present: no acute distress, well-nourished - EENT Eyes: Present: PERRL, EOM intact - Neck Neck: Present: supple, normal ROM - Respiratory Respiratory effort: normal Respiratory: bilateral: diminished, negative: rales, rhonchi, wheezing - Cardiovascular Rhythm: regular Heart Sounds: Present: S1 & S2 - Extremities Extremities: no ischemia, No edema - Abdominal General gastrointestinal: Present: soft, non-tender, non-distended, normal bowel sounds - Integumentary Integumentary: Present: clear, warm - Musculoskeletal Musculoskeletal: strength equal bilaterally - Psychiatric Psychiatric: appropriate mood/affect, cooperative - Neurologic Neurologic: CNII-XII intact, moves all extremities Plan Activity: advance as tolerated Diet: other (cardiac diet) Additional Instructions: Smoking cessation advised, nicotine patch as needed. Advised to quit alcohol intake [facility] - 7 Days SISI ROJO MD [Staff Physician] - 7 Days Forms: CardCat PCI D/C Instructions Prescriptions: Aspirin [Aspirin BABY CHEW TAB] 81 mg PO QDAY #30 tab.chew Carvedilol [Coreg] 3.125 mg PO BID #60 tablet Folic Acid [Folvite] 1 mg PO QDAY #30 tablet AtorvaSTATin [Lipitor] 80 mg PO QHS #30 tablet Clopidogrel [Plavix] 75 mg PO QDAY #30 tablet guaiFENesin [Robitussin] 100 mg PO Q4H PRN 10 Days oral.liqd PRN Reason: Cough Thiamine [Vitamin B-1] 100 mg PO QDAY #30 tablet Lisinopril [Zestril TAB] 2.5 mg PO QDAY #30 tablet
[2018-10-28] MEDS: ROCEPHIN/NS 1 GM/50 ML 1 GM/50 ML BAG IV SCH (13:30)
--- NOTE | 2018-10-28 14:15 | Progress Note ---
Assessment and Plan Currently stable cardiac status. Cont present cardiac regimen. Pt may discharge home from cardiology standpoint. Follow up in our [place] office with Dr. Peter on 11/17/2018 @ 9:00AM. The patient has been seen in conjunction with Dr. Irene Paula who agrees with the assessment and plan of care. - Patient Problems (1) STEMI (ST elevation myocardial infarction) Current Visit: Yes Status: Acute Qualifiers: Involved coronary artery: LAD coronary artery Qualified Code(s): I21.02 - ST elevation (STEMI) myocardial infarction involving left anterior descending coronary artery (2) CAD (coronary artery disease) Current Visit: Yes Status: Chronic (3) Stented coronary artery Current Visit: Yes Status: Chronic (4) Tobacco use Current Visit: Yes Status: Chronic (5) EtOH dependence Current Visit: Yes Status: Chronic Qualifiers: Substance use status: with intoxication Complication of substance-induced condition: uncomplicated Qualified Code(s): F10.220 - Alcohol dependence with intoxication, uncomplicated (6) Hyperlipemia, mixed Current Visit: Yes Status: Chronic Subjective Date of service: 10/28/18 Principal diagnosis: STEMI Interval history: pt resting in bed, no current complaints. Objective Last Vital Signs Temp 98.8 F 10/28/18 08:44 Pulse 71 10/28/18 10:00 Resp 16 10/28/18 08:44 BP 102/57 10/28/18 08:44 Pulse Ox 96 10/28/18 08:44 - Physical Examination General: No Apparent Distress HEENT: Positive: PERRL, Mucus Membranes Moist Neck: Positive: neck supple, trachea midline Cardiac: Positive: Reg Rate and Rhythm, S1/S2 Neuro: Positive: Grossly Intact Abdomen: Positive: Soft, Active Bowel Sounds. Negative: Tender, Distended Skin: Positive: Clear Incision: Cardiac Cath Site (TR band no hematoma) Musculoskeletal: No Pain, Normal Range of Motion Extremities: Present: normal. Absent: edema - Labs and Meds CBC 10/28/18 Range/Units 04:12 Hgb 14.4 (11.8-15.2) gm/dl Hct 44.3 (35.5-45.6) % Plt Count 197 (140-440) K/mm3 - Imaging and Cardiology EKG: report reviewed, image reviewed Echo: pending Cardiac cath: report reviewed (left main patent LAD proximal pain in the mid 100% diagonal one patent ramus patent circumflex patent OM1 patent RCA patent with mild LV dysfunction EF approximately 45% anterior wall hypokinesis patient had PCI of the mid LAD with a drug-eluting science 2 5 x 23 mm postdilated with 3.0 by 12 times to inflation residual distal diagonal to small vessel clot.)
== END 2018-10-28 18:34 | disposition home or self-care (01) | DRG 246 ==
LOC: ED 20:04 → CC1 20:28 → 4A 10-27 15:38
PROVIDERS: ADMIT Internal Medicine; ATTEND Internal Medicine
PROC: 027034Z Dilation of Coronary Artery, One Artery with Drug-eluting Intraluminal Device, Percutaneous Approach (ICD-10-PCS; principal; 2018-10-26)
PROC: 4A023N7 Measurement of Cardiac Sampling and Pressure, Left Heart, Percutaneous Approach (ICD-10-PCS; 2018-10-26)
PROC: B2111ZZ Fluoroscopy of Multiple Coronary Arteries using Low Osmolar Contrast (ICD-10-PCS; 2018-10-26)
PROC: B2151ZZ Fluoroscopy of Left Heart using Low Osmolar Contrast (ICD-10-PCS; 2018-10-26)
PROC: B240ZZ3 Ultrasonography of Single Coronary Artery, Intravascular (ICD-10-PCS; 2018-10-26)
DX: I21.02 ST elevation (STEMI) myocardial infarction involving left anterior descending coronary artery (principal); I50.31 Acute diastolic (congestive) heart failure; R65.10 Systemic inflammatory response syndrome (SIRS) of non-infectious origin without acute organ dysfunction; I11.0 Hypertensive heart disease with heart failure; F10.220 Alcohol dependence with intoxication, uncomplicated; Z96.612 Presence of left artificial shoulder joint; Z96.611 Presence of right artificial shoulder joint; F17.210 Nicotine dependence, cigarettes, uncomplicated; I21.09 ST elevation (STEMI) myocardial infarction involving other coronary artery of anterior wall; E78.2 Mixed hyperlipidemia; F32.9 Major depressive disorder, single episode, unspecified; Y90.9 Presence of alcohol in blood, level not specified; F41.9 Anxiety disorder, unspecified; Z83.3 Family history of diabetes mellitus; Z82.49 Family history of ischemic heart disease and other diseases of the circulatory system; Z71.6 Tobacco abuse counseling
CPT/HCPCS: 36415; 71045; 80048; 80053; 80061; 80320; 81001; 82550; 82553; 82962; 83880; 84484; 85014; 85018; 85025; 85049; 85347; 85610; 85730; 86850; 86900; 86901; 87086; 92941; 92978; 93005; 93010; 93306; 93458; 99406; G0378; A9270-GY; C1725; C1753; C1769; C1874; C1887; C1894; C9606; G0480; J0171; J0461; J0696; J1170; J1644; J2001; J2250; J2270; J2370; J2405; J3010; J3246; J3411; J7030; J7040; Q9967